=== PATIENT | female | born 1950 | race Caucasian/White ===

== ENCOUNTER 2020-07-09 09:19 | Inpatient (IN) | payer MEDICARE ==
[~2020-07-09] VITALS: Ht 149.9 cm; Wt 70.0 kg
[2020-07-09 09:59] LABS: BASOPHILS # (AUTO) 0.1 X10'3 (0-0.2); BASOPHILS % (AUTO) 0.4 % (0-1); MEAN CORPUSCULAR HEMOGLOBIN 25.1 PG (27.0-31.0); MONOCYTES # (AUTO) 0.7 X10'3 (0-0.9); NEUTROPHILS # (AUTO) 11.7 X10'3 (1.8-7.7); RED BLOOD COUNT 4.38 X10'6 (4.20-5.60); RED CELL DISTRIBUTION WIDTH 15.8 % (11.5-14.5)
[2020-07-09 10:00] LABS: EOSINOPHILS # (AUTO) 0.1 X10'3 (0-0.9); EOSINOPHILS % (AUTO) 0.6 % (0-6); HEMATOCRIT 34.6 % (35.0-45.0); LYMPHOCYTES # (AUTO) 1.1 X10'3 (1.1-4.8); LYMPHOCYTES % (AUTO) 7.8 % (21-51); MEAN CORPUSCULAR HGB CONC 31.8 g/dL (33.0-36.5); MEAN CORPUSCULAR VOLUME 78.9 FL (78-98); MEAN PLATELET VOLUME 9.2 FL (7.4-10.4); MONOCYTES % (AUTO) 5.1 % (2-12); NEUTROPHILS % (AUTO) 86.1 % (42-75); PLATELET COUNT 362 X10'3 (140-440); WHITE BLOOD COUNT 13.6 X10'3 (4.5-11.0)
[2020-07-09] MEDS ORDERED: morphine 4 MG/ML inj SYRINge IV ONE (10:05)
[2020-07-09] MEDS ORDERED: ondansetron/PF 4mg/2ml inj IV ONE (10:05)
[2020-07-09] MEDS ORDERED: normal saline 1000ML IV soln IVB ONE (10:05)
[2020-07-09 10:17] LABS: ALANINE AMINOTRANSFERASE 25 U/L (12-78); ALBUMIN/GLOBULIN RATIO 1.2 (1.1-1.5); ALKALINE PHOSPHATASE 90 IU/L (46-116); AMYLASE 41 U/L (25-115); ANION GAP 11 (8-16); ASPARTATE AMINO TRANSFERASE 18 U/L (10-37); BILIRUBIN,TOTAL 0.5 MG/DL (0.1-1.0); BLOOD UREA NITROGEN 9 MG/DL (7-18); BUN/CREATININE RATIO 11.7 (6.6-38.0); CALCIUM 8.9 MG/DL (8.5-10.1); CHLORIDE 89 MMOL/L (99-107); CREATININE 0.77 MG/DL (0.40-0.90); GLUCOSE 161 MG/DL (70-104); LIPASE 65 U/L (73-393); POTASSIUM 3.7 MMOL/L (3.5-5.1); SODIUM 124 MMOL/L (135-145); TOTAL CARBON DIOXIDE 24.1 MMOL/L (24-32); TOTAL PROTEIN 7.4 G/DL (6.4-8.2); eGFR 74 ML/MIN
--- NOTE | 2020-07-09 10:27 | NUR ---
BACK FROM CT
--- NOTE | 2020-07-09 11:47 | NUR ---
US at bedside
[2020-07-09] MEDS ORDERED: magnesium 2GM in 50ml NS 50 ML IV PRN (12:00)
[2020-07-09] MEDS ORDERED: magnesium 4gm in 100ml NS 100 ML IV PRN (12:00)
[2020-07-09] MEDS ORDERED: potassium Cl 20 mEq SR tablet PO PRN ×2 (12:00)
[2020-07-09] MEDS ORDERED: potassium CL 10mEq/100ml bag 100 ML IV PRN (12:00)
[2020-07-09] MEDS ORDERED: magnesium Cl slow-release 64mg tablet PO PRN (12:00)
[2020-07-09] MEDS ORDERED: acetaminophen 325mg tablet PO PRN ×2 (12:00)
[2020-07-09] MEDS ORDERED: ondansetron/PF 4mg/2ml inj IV PRN (12:00)
[2020-07-09] MEDS ORDERED: magnesium hydroxide 30ml (MOM) UD suspension PO PRN (12:00)
[2020-07-09 12:08] LABS: CLARITY,URINE SLIGHTLY CLOUDY (Clear); COLOR,URINE STRAW (Yellow); GLUCOSE, URINE 100 mg/dl (Neg); KETONES,URINE 40 mg/dl (Neg); LEUKOCYTE ESTERASE ,URINE TRACE (Neg); NITRITES, URINE NEGATIVE (Neg); OCCULT BLOOD,URINE NEGATIVE (Neg); PROTEIN,URINE NEGATIVE (Neg); UROBILINOGEN,URINE 0.2 E.U/dL (0.2-1.0)
[2020-07-09 12:09] LABS: UA COLLECTION TYPE CLN CATCH MIDSTREAM
[2020-07-09 12:17] LABS: BACTERIA,URINE FEW /HPF (Neg); HYALINE CASTS 0-3 /LPF (NEGATIVE); MUCUS STRANDS MANY /LPF (Neg); RBC,URINE 0-2 /HPF (0-2); RENAL CELLS, URINE FEW /HPF; SQUAMOUS EPITHELIAL CELL,UR MANY /LPF (FEW); TRANSITIONAL EPI CELLS,URINE MODERATE /HPF; WBC,URINE 0-4 /HPF (0-4)
[2020-07-09] MEDS: normal saline 1000ml 1,000 ML IV SCH ×2 (12:29→22:49)
[2020-07-09] MEDS ORDERED: BIOT5000 PO (12:38)
[2020-07-09] MEDS ORDERED: CHOL100046 PO (12:38)
[2020-07-09] MEDS ORDERED: CALC-729 PO (12:38)
[2020-07-09] MEDS ORDERED: METF-438 PO (12:38)
[2020-07-09] MEDS ORDERED: ATOR20TA66 PO (12:38)
[2020-07-09] MEDS ORDERED: ESOM40CA49 PO (12:38)
[2020-07-09] MEDS ORDERED: KRIL1CAP21 PO (12:38)
[2020-07-09] MEDS ORDERED: DULA1.5P SQ (12:38)
[2020-07-09] MEDS ORDERED: LEVO88TA2 PO (12:38)
[2020-07-09] MEDS ORDERED: LISI10TA4 PO (12:38)
[2020-07-09] MEDS ORDERED: ASCO500C17 PO (12:38)
[2020-07-09] MEDS ORDERED: ESCI10TA PO (12:39)
[2020-07-09] MEDS ORDERED: ACYC-1 PO (12:56)
[2020-07-09] MEDS: HYDROcodone/acetaminophen 5mg/325mg tablet PO PRN ×2 (13:40→21:52)
[2020-07-09 15:43] LABS: HEMOGLOBIN A1C 7.3 % (4.5-6.2)
--- NOTE | 2020-07-09 15:46 | NUR ---
Received report from NISA Montenegro. Awaiting patient arrival to room 354C.
[2020-07-09 16:05] LABS: PARTIAL THROMBOPLASTIN TIME 25 SECONDS (22-32)
--- NOTE | 2020-07-09 17:05 | NUR ---
Received patient to room 354C via wheelchair accompanied by x1 staff. Patient up ad refugio and ambulating independently to the bathroom. Patient alert and oriented with no complaint at this time. Oriented patient to room and call light. Bed is low and locked, call light within reach.
[2020-07-09 17:15] VITALS: BP 167/64
[2020-07-09] MEDS: piperacillin/tazo 3.375gm/50ml 50 ML IV SCH ×2 (17:28→23:36)
--- NOTE | 2020-07-09 18:00 | NUR ---
Patient in room [facility]. I have received report from Sharla PAULA and had the opportunity to ask questions and assume patient care.
[2020-07-09] MEDS ORDERED: MESSAGE TO PHARMACY PO ONE (18:20)
[2020-07-09] MEDS ORDERED: dextrose ORAL solution 15 GM/59 ML bottle PO PRN ×2 (18:20)
[2020-07-09] MEDS ORDERED: glucagon, human recombinant 1mg kit SUBCUT PRN (18:20)
[2020-07-09] MEDS ORDERED: dextrose 50%-water 50ml dispensing syringe IV PRN ×2 (18:20)
[2020-07-09] MEDS ORDERED: insulin Lispro (HumaLOG) vial - multi-dose SQ SCH (18:20)
--- NOTE | 2020-07-09 18:21 | NUR ---
Problems reprioritized. Patient report given, questions answered & plan of care reviewed with NISA Pritchard.
[2020-07-09 20:00] VITALS: BP 166/67
[2020-07-09] MEDS: K and/or MAG REPLACEMENT MC SCH (20:00)
[2020-07-09] MEDS: heparin, porcine 5000 units/ml vial SQ SCH (20:13)
[2020-07-09] MEDS: lisinopril 10 MG tablet PO SCH (20:15)
[2020-07-09] MEDS ORDERED: temazepam 15mg capsule PO PRN (21:00)
[2020-07-09] MEDS: insulin glargine (Lantus) pen - multi-dose SQ SCH (21:00)
[2020-07-10] VITALS (20 sets, daily range): BP systolic 130–176; BP diastolic 63–95
[2020-07-10] MEDS: HYDROmorphone inj. 0.5 MG/0.5 ML DISP.SYRIN IV PRN ×2 (01:16→11:40)
[2020-07-10 05:14] LABS: BASOPHILS # (AUTO) 0.1 X10'3 (0-0.2); BASOPHILS % (AUTO) 0.7 % (0-1); EOSINOPHILS # (AUTO) 0.1 X10'3 (0-0.9); EOSINOPHILS % (AUTO) 1.5 % (0-6); HEMATOCRIT 28.9 % (35.0-45.0); HEMOGLOBIN 9.2 g/dl (12.0-16.0); LYMPHOCYTES # (AUTO) 1.3 X10'3 (1.1-4.8); LYMPHOCYTES % (AUTO) 14.1 % (21-51); MEAN CORPUSCULAR HEMOGLOBIN 25.2 PG (27.0-31.0); MEAN CORPUSCULAR HGB CONC 31.9 g/dL (33.0-36.5); MEAN CORPUSCULAR VOLUME 78.9 FL (78-98); MEAN PLATELET VOLUME 9.3 FL (7.4-10.4); MONOCYTES # (AUTO) 0.8 X10'3 (0-0.9); MONOCYTES % (AUTO) 9.4 % (2-12); NEUTROPHILS # (AUTO) 6.6 X10'3 (1.8-7.7); NEUTROPHILS % (AUTO) 74.3 % (42-75); PLATELET COUNT 279 X10'3 (140-440); RED BLOOD COUNT 3.67 X10'6 (4.20-5.60); RED CELL DISTRIBUTION WIDTH 16.5 % (11.5-14.5); WHITE BLOOD COUNT 8.9 X10'3 (4.5-11.0)
[2020-07-10] MEDS: HYDROcodone/acetaminophen 10/325mg tab PO PRN ×2 (05:28→20:38)
[2020-07-10 05:34] LABS: ALANINE AMINOTRANSFERASE 20 U/L (12-78); ALBUMIN 3.1 G/DL (3.4-5.0); ALBUMIN/GLOBULIN RATIO 1.1 (1.1-1.5); ALKALINE PHOSPHATASE 68 IU/L (46-116); ANION GAP 7 (8-16); ASPARTATE AMINO TRANSFERASE 11 U/L (10-37); BILIRUBIN,TOTAL 0.4 MG/DL (0.1-1.0); BLOOD UREA NITROGEN 6 MG/DL (7-18); BUN/CREATININE RATIO 7.6 (6.6-38.0); CALCIUM 8.4 MG/DL (8.5-10.1); CHLORIDE 99 MMOL/L (99-107); CREATININE 0.79 MG/DL (0.40-0.90); GLUCOSE 152 MG/DL (70-104); MAGNESIUM 1.7 MG/DL (1.5-2.4); POTASSIUM 3.4 MMOL/L (3.5-5.1); SODIUM 130 MMOL/L (135-145); TOTAL CARBON DIOXIDE 23.8 MMOL/L (24-32); eGFR 72 ML/MIN
--- NOTE | 2020-07-10 06:11 | NUR ---
Problems reprioritized. Patient report given, questions answered & plan of care reviewed with Irish PAULA.
--- NOTE | 2020-07-10 06:29 | NUR ---
Patient in room [facility] 354. I have received report from LESLIE PAULA and had the opportunity to ask questions and assume patient care.
[2020-07-10] MEDS: heparin, porcine 5000 units/ml vial SQ SCH ×2 (06:44→19:59)
--- NOTE | 2020-07-10 07:44 | NUR ---
went to hang abx before surgery. not available. called pharmacy they will send it up.
--- NOTE | 2020-07-10 07:50 | NUR ---
CALLED [facility] TO NOTIFY THEM OF PT'S K= OF 3.4. PER CHARGE WILL START K+ PROTOCOL.
[2020-07-10] MEDS: ESCITALOPRAM OXALATE 5 MG TABLET PO SCH (07:52)
[2020-07-10] MEDS: levoTHYROXINE 88mcg tablet PO SCH (07:53)
[2020-07-10] MEDS: potassium CL 10mEq/100ml bag 100 ML IV PRN ×4 (07:54→12:34)
[2020-07-10] MEDS: normal saline 1000ml 1,000 ML IV SCH ×2 (07:57→18:47)
[2020-07-10] MEDS: K and/or MAG REPLACEMENT MC SCH ×2 (08:00→20:00)
[2020-07-10] MEDS: piperacillin/tazo 3.375gm/50ml 50 ML IV SCH ×2 (09:34→19:06)
--- NOTE | 2020-07-10 11:48 | NUR ---
Pt with hx T2DM, current A1c is 7.3%. Written DM education and RD contact information placed in patient's chart. Will continue to follow. Addendum: 07/10/20 at [address] Amended: Links added.
[2020-07-10] MEDS ORDERED: INDOCYANINE GREEN 25 MG/10 ML VIAL IV STA (14:23)
[2020-07-10] MEDS ORDERED: INDOCYANINE GREEN 25 MG/10 ML VIAL IV ONE (14:35)
[2020-07-10] MEDS ORDERED: BUPIVAcaine/PF 2.5 mg/ml (0.25%) 30ml vial ONE (15:45)
[2020-07-10] MEDS ORDERED: LIDOcaine 1% 30ml preserv. free vial ONE (15:45)
[2020-07-10] MEDS ORDERED: morphine 4 MG/ML inj SYRINge IV PRN (15:55)
[2020-07-10] MEDS ORDERED: acetaminophen 1,000mg/100ml IV 100 ML IV PRN (15:55)
[2020-07-10] MEDS ORDERED: morphine 2 MG/ML inj. syringe IV PRN (15:55)
[2020-07-10] MEDS ORDERED: ondansetron/PF 4mg/2ml inj IV PRN (15:55)
[2020-07-10] MEDS ORDERED: hydrALAZINE 20mg/ml inj. IV PRN (15:55)
[2020-07-10] MEDS ORDERED: labetalol 20mg/4ml (5mg/ml) syringe IV PRN (15:55)
[2020-07-10] MEDS ORDERED: proCHLORperazine 10 MG/2 ml inj IV PRN (15:55)
[2020-07-10] MEDS ORDERED: ringers solution, lacted 1,000 ML IV SCH (15:55)
[2020-07-10] MEDS ORDERED: meperidine/PF 25mg/ml syringe IV PRN (15:55)
[2020-07-10] MEDS ORDERED: HYDROmorphone inj. 0.5 MG/0.5 ML DISP.SYRIN IV PRN ×2 (15:55)
[2020-07-10] MEDS ORDERED: midazolam 2 mg/2 ml injection ONE (16:05)
[2020-07-10] MEDS ORDERED: fentaNYL /PF 50mcg/ml 5ml ampule ONE (16:05)
[2020-07-10] MEDS ORDERED: LIDOcaine 2% 5ml jelly ONE (16:08)
[2020-07-10] MEDS ORDERED: propofol inj 20 ML IV ONE (16:33)
[2020-07-10] MEDS ORDERED: ceFAZolin 1000mg inj ONE ×2 (16:33)
[2020-07-10] MEDS ORDERED: rocuronium 10mg/ml inj IV ONE (16:33)
[2020-07-10] MEDS ORDERED: ePHEDrine 50MG/ML INJ. ONE (16:33)
[2020-07-10] MEDS ORDERED: dexamethasone sod phosphate 4mg/ml inj. ONE (16:33)
[2020-07-10] MEDS ORDERED: LIDOcaine 2% (20mg/ml) 5ml vial ONE (16:33)
[2020-07-10] MEDS ORDERED: ondansetron/PF 4mg/2ml inj ONE (16:33)
[2020-07-10] MEDS ORDERED: labetalol 20mg/4ml (5mg/ml) syringe IV ONE (16:39)
--- NOTE | 2020-07-10 17:20 | NUR ---
Problems reprioritized. Patient report given, questions answered & plan of care reviewed with LESLIE PAULA.
[2020-07-10] MEDS ORDERED: HYDROcodone/acetaminophen 5mg/325mg tablet PO PRN (17:35)
--- NOTE | 2020-07-10 17:35 | NUR ---
Received from OR via BED , accompanied by Anesthesiologist DR DOWNS and report given by Anesthesiolgist. PATIENT WAKING UP, DENIES PAIN, V/S WNL, NEUROVASCULAR CHECKS INTACT, 20G PIV RUE, SCD ON, BANDAIDS TO LAP SIGHTS OF ABDOMEN CDI.
--- NOTE | 2020-07-10 18:00 | NUR ---
Patient in room [facility]. I have received report from Irish PAULA and had the opportunity to ask questions and assume patient care.
--- NOTE | 2020-07-10 18:30 | NUR ---
Received report from Dany PAULA in recovery. Patient arrived on unit at 1845 on a gurney saline locked, a/o, vss, on O2, no signs of distress will continue to monitor
--- NOTE | 2020-07-10 18:35 | NUR ---
PATIENT A&OX4, DENIES PAIN, V/S WNL, NEUROVASCULAR CHECKS INTACT, 20G PIV RUE, SCD ON, BANDAIDS TO LAP SIGHTS OF ABDOMEN CDI. TAKEN TO 354C WITH ALL BELONGINGS AND HOOKED UP TO MONITORS IN ROOM AND REPORT GIVEN TO FORENSIC SCIENTIST.
[2020-07-10] MEDS: lisinopril 10 MG tablet PO SCH (20:00)
[2020-07-10] MEDS: insulin glargine (Lantus) pen - multi-dose SQ SCH (21:39)
[2020-07-11] VITALS: BP 130/80
[2020-07-11] MEDS: piperacillin/tazo 3.375gm/50ml 50 ML IV SCH ×3 (01:04→15:07)
[2020-07-11] MEDS: HYDROcodone/acetaminophen 10/325mg tab PO PRN ×3 (03:24→19:22)
[2020-07-11] MEDS: normal saline 1000ml 1,000 ML IV SCH ×2 (04:30→14:00)
[2020-07-11] MEDS: HYDROmorphone inj. 0.5 MG/0.5 ML DISP.SYRIN IV PRN (05:23)
[2020-07-11 05:57] LABS: BASOPHILS % (AUTO) 0.2 % (0-1); EOSINOPHILS % (AUTO) 0 % (0-6); HEMATOCRIT 26.4 % (35.0-45.0); HEMOGLOBIN 8.7 g/dl (12.0-16.0); LYMPHOCYTES # (AUTO) 0.7 X10'3 (1.1-4.8); LYMPHOCYTES % (AUTO) 9.2 % (21-51); MEAN CORPUSCULAR HEMOGLOBIN 26.2 PG (27.0-31.0); MEAN CORPUSCULAR HGB CONC 32.9 g/dL (33.0-36.5); MEAN CORPUSCULAR VOLUME 79.5 FL (78-98); MEAN PLATELET VOLUME 9.4 FL (7.4-10.4); MONOCYTES # (AUTO) 0.4 X10'3 (0-0.9); MONOCYTES % (AUTO) 5.4 % (2-12); NEUTROPHILS # (AUTO) 6.6 X10'3 (1.8-7.7); NEUTROPHILS % (AUTO) 85.2 % (42-75); PLATELET COUNT 268 X10'3 (140-440); RED BLOOD COUNT 3.32 X10'6 (4.20-5.60); RED CELL DISTRIBUTION WIDTH 16.1 % (11.5-14.5); WHITE BLOOD COUNT 7.8 X10'3 (4.5-11.0)
[2020-07-11 06:16] LABS: ALANINE AMINOTRANSFERASE 50 U/L (12-78); ALBUMIN/GLOBULIN RATIO 0.9 (1.1-1.5); ALKALINE PHOSPHATASE 77 IU/L (46-116); ANION GAP 10 (8-16); ASPARTATE AMINO TRANSFERASE 45 U/L (10-37); BILIRUBIN,TOTAL 0.4 MG/DL (0.1-1.0); BLOOD UREA NITROGEN 6 MG/DL (7-18); CALCIUM 8.2 MG/DL (8.5-10.1); CHLORIDE 98 MMOL/L (99-107); CREATININE 0.75 MG/DL (0.40-0.90); GLUCOSE 183 MG/DL (70-104); MAGNESIUM 1.7 MG/DL (1.5-2.4); POTASSIUM 4.1 MMOL/L (3.5-5.1); SODIUM 130 MMOL/L (135-145); TOTAL PROTEIN 6.3 G/DL (6.4-8.2); eGFR 76 ML/MIN
--- NOTE | 2020-07-11 06:24 | NUR ---
Problems reprioritized. Patient report given, questions answered & plan of care reviewed with Azucena PAULA.
--- NOTE | 2020-07-11 06:25 | NUR ---
I have received report from Francheska PAULA and had the opportunity to ask questions and assume patient care.
--- NOTE | 2020-07-11 07:23 | NUR ---
Patient refused her BS accu check this morning. IS given to patient, she refuses to use.
[2020-07-11] MEDS: ESCITALOPRAM OXALATE 5 MG TABLET PO SCH (07:28)
[2020-07-11] MEDS: heparin, porcine 5000 units/ml vial SQ SCH (07:29)
[2020-07-11] MEDS: levoTHYROXINE 88mcg tablet PO SCH (07:29)
--- NOTE | 2020-07-11 08:28 | NUR ---
DM consult: Patient's A1c has already been addressed, see below. Pt with hx T2DM, current A1c is 7.3%. Written DM education and RD contact information placed in patient's chart. Will continue to follow. Addendum: 07/11/20 at [address] Amended: Links added.
[2020-07-11] MEDS: K and/or MAG REPLACEMENT MC SCH (08:44)
[2020-07-11 09:10] VITALS: BP 171/76
--- NOTE | 2020-07-11 10:23 | NUR ---
Problems reprioritized. Patient report given, questions answered & plan of care reviewed with Maura PAULA.
--- NOTE | 2020-07-11 10:24 | NUR ---
Patient in room [facility]. I have received report from NISA Zeng and had the opportunity to ask questions and assume patient care.
[2020-07-11 11:00] VITALS: BP 110/56
[2020-07-11] MEDS: mag hydrox/Alum hydrox/simeth 30ml oral suspension PO PRN ×2 (11:12→16:29)
--- NOTE | 2020-07-11 13:16 | NUR ---
Pt transported to [facility] via wheelchair. Belongings left in room 347B Addendum: 07/11/20 at 1417 by Maura Menezes RN please disregard note, made on incorrect patient.
[2020-07-11] MEDS ORDERED: HYDR-4383 PO (17:59)
--- NOTE | 2020-07-11 18:28 | NUR ---
Problems reprioritized. Patient report given, questions answered & plan of care reviewed with NISA Lipscomb.
--- NOTE | 2020-07-11 18:44 | NUR ---
I have received report from Maura PAULA and had the opportunity to ask questions and assume patient care.
[2020-07-11 19:00] VITALS: BP 122/83
--- NOTE | 2020-07-12 01:08 | NUR ---
pt was discharged home at 1900. discharge paperwork was given to patient as well as instructions on discharge paperwork reviewed and follow up care. IV was removed, catheter was intact. pt was brought down in wheel chair where her daughter picked her up and drove her home in a private vehicle. pt took all her belongings with her.
== END 2020-07-11 19:29 | disposition home or self-care (01) | DRG 418 ==
LOC: ER 09:21 → ED HOLD 11:58 → SUR 3N 16:50
PROVIDERS: ADMIT Family Medicine; ATTEND Family Medicine
PROC: BF131ZZ Fluoroscopy of Gallbladder and Bile Ducts using Low Osmolar Contrast (ICD-10-PCS; 2020-07-10)
PROC: 8E0W4CZ Robotic Assisted Procedure of Trunk Region, Percutaneous Endoscopic Approach (ICD-10-PCS; 2020-07-10)
PROC: 0FT44ZZ Resection of Gallbladder, Percutaneous Endoscopic Approach (ICD-10-PCS; principal; 2020-07-10 16:00)
DX: K80.00 Calculus of gallbladder with acute cholecystitis without obstruction (principal); E87.1 Hypo-osmolality and hyponatremia; K82.1 Hydrops of gallbladder; K44.9 Diaphragmatic hernia without obstruction or gangrene; E11.9 Type 2 diabetes mellitus without complications; E03.9 Hypothyroidism, unspecified; E78.5 Hyperlipidemia, unspecified; I10 Essential (primary) hypertension; J45.909 Unspecified asthma, uncomplicated; K21.9 Gastro-esophageal reflux disease without esophagitis; E87.6 Hypokalemia; Z98.51 Tubal ligation status
CPT/HCPCS: 36415; 71045; 74176; 76700; 80053; 81001; 82150; 82948; 83036; 83690; 83735; 85025; 85610; 85730; 87081; 93005; 96374; 99285; A4215; A4618; A7000; G0378; J0690; J1100; J1170; J1644; J1815; J2001; J2250; J2270; J2405; J2543; J2704; J3010; J3480; J3490; J7030; J7120

== ENCOUNTER 2022-08-14 15:25 | Emergency (ER) | payer MEDICARE ==
[~2022-08-14] VITALS: Ht 149.9 cm; Wt 72.7 kg
[~2022-08-14 15:25] MED LIST: ACYC-1 PO; ASCO500C17 PO; ATOR20TA66 PO; BIOT5000 PO; CALC-729 PO; CHOL100046 PO; DULA1.5P SQ; ESCI10TA PO; ESOM40CA49 PO; HYDR-4383 PO; KRIL1CAP21 PO; LEVO88TA2 PO; LISI10TA27 PO; METF-438 PO
[2022-08-14] MEDS ORDERED: ibuprofen tablet 400 MG TABLET PO ONE (15:40)
[2022-08-14] MEDS ORDERED: bacitracin 15gm ointment TP ONE (16:45)
--- NOTE | 2022-08-14 17:00 | NUR ---
C-colar removed by MD Whitlock.
[2022-08-14 17:12] VITALS: BP 172/84
== END 2022-08-14 17:15 | disposition home or self-care (01) ==
LOC: ER 15:26
DX: S09.90XA Unspecified injury of head, initial encounter (principal); I10 Essential (primary) hypertension; K21.9 Gastro-esophageal reflux disease without esophagitis; Z98.51 Tubal ligation status; W01.0XXA Fall on same level from slipping, tripping and stumbling without subsequent striking against object, initial encounter; Y93.89 Activity, other specified; Y92.89 Other specified places as the place of occurrence of the external cause; Y99.8 Other external cause status
CPT/HCPCS: 12011; 70450; 72125; 73130; 99284